=== PATIENT | female | born 1945 | race Caucasian/White ===

== ENCOUNTER 2022-05-06 08:23 | Day surgery (SDC) | payer OTHER, MEDICARE ==
[2022-04-28 08:46] VITALS: BMI 32.9
[2022-05-06] MEDS ORDERED: ePHEDrine SULFATE 50 MG/1 ML AMPULE ONE (09:58)
[2022-05-06] MEDS ORDERED: PHENYLEPHRINE HCL 10 MG/1 ML SINGLE DOSE VIAL ONE (10:06)
[2022-05-06 11:01] VITALS: BP 82/55; PULSE 71; RESP 20; TEMP 98
== END 2022-05-06 11:00 | disposition home or self-care (01) ==
LOC: FASU-ENDO 08:23
PROVIDERS: ATTEND Internal Medicine
PROC: 0DBK8ZX Excision of Ascending Colon, Via Natural or Artificial Opening Endoscopic, Diagnostic (ICD-10-PCS; 2022-05-06)
PROC: 0DBN8ZX Excision of Sigmoid Colon, Via Natural or Artificial Opening Endoscopic, Diagnostic (ICD-10-PCS; 2022-05-06)
PROC: 0DBM8ZX Excision of Descending Colon, Via Natural or Artificial Opening Endoscopic, Diagnostic (ICD-10-PCS; 2022-05-06)
PROC: 0DBL8ZX Excision of Transverse Colon, Via Natural or Artificial Opening Endoscopic, Diagnostic (ICD-10-PCS; principal; 2022-05-06 09:50)
DX: Z12.11 Encounter for screening for malignant neoplasm of colon (principal); D12.2 Benign neoplasm of ascending colon; D12.3 Benign neoplasm of transverse colon; K63.5 Polyp of colon; K57.30 Diverticulosis of large intestine without perforation or abscess without bleeding; K64.8 Other hemorrhoids; Z86.010 Personal history of colon polyps
CPT/HCPCS: 88305-TC

== ENCOUNTER 2023-04-22 08:43 | Emergency (ER) | payer OTHER, MEDICARE ==
[2023-04-22 09:47] VITALS: BP 98/60; PULSE 71; RESP 18; TEMP 97.1; BMI 33.9
[2023-04-22 11:29] LABS: INR 2.01 (0.83-1.09); PROTHROMBIN TIME (PATIENT) 23.2 SEC (9.7-13.0)
[2023-04-22 11:38] LABS: POTASSIUM 4.5 mmol/L (3.5-5.1)
[2023-04-22 11:39] LABS: BASO % 0.1 % (0-2.0); EOS % 0.1 % (0-4.5); HEMATOCRIT 35.2 % (32.4-45.2); HEMOGLOBIN 11.1 GM/dL (10.7-15.3); LYMPH % 4.2 % (8-40); MCH 27.8 pg (25.7-33.7); MCHC 31.5 g/dl (32.0-36.0); MEAN CELL VOLUME 88.2 fl (80-96); MEAN PLT VOLUME 8.6 fl (7.5-11.1); MONO % 6.5 % (3.8-10.2); NEUT % 89.1 % (42.8-82.8); PLATELET COUNT 257 10^3/uL (134-434); RBC 3.99 M/mm3 (3.60-5.2); RDW 19.1 % (11.6-15.6); WHITE BLOOD COUNT 10.5 K/mm3 (4.0-10.0)
[2023-04-22 11:41] LABS: ALBUMIN 2.8 g/dl (3.4-5.0); BLOOD UREA NITROGEN 25.4 mg/dL (7-18); CALCIUM 8.7 mg/dL (8.5-10.1); MAGNESIUM 2.5 mg/dL (1.8-2.4)
[2023-04-22 11:45] LABS: BILIRUBIN,TOTAL 0.8 mg/dL (0.2-1); TOT PROT 6.2 g/dl (6.4-8.2)
[2023-04-22 11:49] LABS: LACTIC ACID 3.2 mmol/L (0.4-2.0)
[2023-04-22] MEDS ORDERED: SODIUM CHLORIDE 0.9% 500 ML INFUS.BAG IV ONE (11:52)
[2023-04-22 14:55] LABS: URINE APPEARANCE CLOUDY; URINE BILIRUBIN NEGATIVE (NEGATIVE); URINE COLOR YELLOW; URINE GLUCOSE (UA) NEGATIVE (NEGATIVE); URINE KETONE NEGATIVE (NEGATIVE)
[2023-04-22 14:56] LABS: EPI CELLS 22.5 /uL (0-25.1); HYALINE CASTS 1.18 /uL (0-3.1); URINE BACTERIA 2585.7 /uL (0-1359); URINE LEUK ESTERASE 3+ (NEGATIVE); URINE NITRITE NEGATIVE (NEGATIVE); URINE PROTEIN 1+ (NEGATIVE); URINE RBC 115.7 /uL (0-23.9); URINE UROBILINOGEN 0.2 mg/dL (0.2-1.0); URINE WBC 1153.2 /uL (0-25.8)
[2023-04-22 15:34] LABS: LACTIC ACID 2.2 mmol/L (0.4-2.0)
== END 2023-04-22 17:48 | disposition home or self-care (01) ==
LOC: JER 08:43
DX: U07.1 COVID-19 (principal); N39.0 Urinary tract infection, site not specified; R10.32 Left lower quadrant pain; R10.31 Right lower quadrant pain; J02.9 Acute pharyngitis, unspecified; M79.604 Pain in right leg
CPT/HCPCS: 0241U-QW; 36415; 71045-TC-FY; 74177-TC; 80053; 80307; 81003; 83605; 83735; 84484; 85025; 85610; 85730; 87086; 93005; 93010; 99285-25; Q9967

== ENCOUNTER 2023-05-19 15:59 | Inpatient (IN) | payer OTHER, MEDICARE ==
[2023-05-19 17:50] LABS: VENOUS BASE EXCESS 3.2 mmol/L (-2-2); VENOUS O2 SATURATION 29.6 % (70-80); VENOUS PCO2 44.4 mmHg (38-52); VENOUS PH 7.42 (7.310-7.410)
[2023-05-19 17:57] LABS: BASO % 1.4 % (0-2.0); EOS % 2.9 % (0-4.5); HEMATOCRIT 37.3 % (32.4-45.2); HEMOGLOBIN 12.1 GM/dL (10.7-15.3); LYMPH % 21.6 % (8-40); MCHC 32.4 g/dl (32.0-36.0); MEAN CELL VOLUME 89.5 fl (80-96); MEAN PLT VOLUME 7.9 fl (7.5-11.1); MONO % 11.7 % (3.8-10.2); NEUT % 62.4 % (42.8-82.8); PLATELET COUNT 311 10^3/uL (134-434); RBC 4.17 M/mm3 (3.60-5.2); RDW 23.2 % (11.6-15.6); WHITE BLOOD COUNT 7.7 K/mm3 (4.0-10.0)
[2023-05-19 18:14] LABS: INR 1.58 (0.83-1.09); PROTHROMBIN TIME (PATIENT) 18.3 SEC (9.7-13.0)
[2023-05-19 18:16] LABS: ACTIVATED PTT 31.5 SECONDS (25.2-36.5)
[2023-05-19 18:22] LABS: CALCIUM 9.4 mg/dL (8.5-10.1)
[2023-05-19 18:23] LABS: ALBUMIN 3.4 g/dl (3.4-5.0); BLOOD UREA NITROGEN 12.6 mg/dL (7-18)
[2023-05-19 18:26] LABS: CREATININE 0.7 mg/dL (0.55-1.3)
[2023-05-19 18:28] LABS: TOT PROT 6.6 g/dl (6.4-8.2)
[2023-05-19 18:30] LABS: ANISOCYTOSIS 3+; MACROCYTOSIS 0; OVALOCYTE 1+
[2023-05-19 19:15] LABS: EPI CELLS 14 /uL (0-25.1); HYALINE CASTS 4 /uL (0-3.1); URINE APPEARANCE TURBID; URINE BACTERIA >9,000 /uL (0-1359); URINE BILIRUBIN 1+ (NEGATIVE); URINE COLOR DK YELLOW; URINE GLUCOSE (UA) NEGATIVE (NEGATIVE); URINE KETONE TRACE (NEGATIVE); URINE LEUK ESTERASE 3+ (NEGATIVE); URINE NITRITE POSITIVE (NEGATIVE); URINE PROTEIN 1+ (NEGATIVE); URINE WBC 21911 /uL (0-25.8)
[2023-05-19 19:31] LABS: URINE CRYSTALS MODERATE /hpf; URINE RBC 359 /uL (0-23.9); YEAST NONE SEEN (NEGATIVE)
[2023-05-19] MEDS ORDERED: ERTAPENEM SODIUM 1 GM VIAL ONE (20:35)
[2023-05-19] MEDS: ERTAPENEM SODIUM 1 GM in SODIUM CHLORIDE 50 ML IVPB ONE (20:45)
[2023-05-20] MEDS: INSULIN ASPART SLIDING SCALE (NOVOLOG) 1 VIAL SQ SCH (00:53)
[2023-05-20 06:38] VITALS: BMI 27.3
[2023-05-20 09:20] LABS: BASO % 1.5 % (0-2.0); EOS % 3.4 % (0-4.5); HEMATOCRIT 35.7 % (32.4-45.2); HEMOGLOBIN 11.3 GM/dL (10.7-15.3); LYMPH % 21.3 % (8-40); MCHC 31.7 g/dl (32.0-36.0); MEAN CELL VOLUME 91.5 fl (80-96); MEAN PLT VOLUME 7.8 fl (7.5-11.1); MONO % 10.4 % (3.8-10.2); NEUT % 63.4 % (42.8-82.8); PLATELET COUNT 275 10^3/uL (134-434); RBC 3.91 M/mm3 (3.60-5.2); RDW 22.9 % (11.6-15.6); WHITE BLOOD COUNT 6.5 K/mm3 (4.0-10.0)
[2023-05-20 09:53] LABS: POTASSIUM 4.2 mmol/L (3.5-5.1)
[2023-05-20] MEDS ORDERED: ENOXAPARIN NA (PORCINE) 40 MG/0.4 ML DISP.SYRIN SQ SCH (10:00)
[2023-05-20 10:01] LABS: ALBUMIN 3.1 g/dl (3.4-5.0); BLOOD UREA NITROGEN 12.3 mg/dL (7-18); CALCIUM 9.3 mg/dL (8.5-10.1)
[2023-05-20 10:02] LABS: BILIRUBIN,TOTAL 0.8 mg/dL (0.2-1); CREATININE 0.7 mg/dL (0.55-1.3)
[2023-05-20 10:03] LABS: PHOSPHOROUS 4.3 mg/dL (2.5-4.9); TOT PROT 6.2 g/dl (6.4-8.2)
[2023-05-20] MEDS: metoPROLOL SUCCINATE 25 MG TAB.SR.24H (FP) PO SCH (10:27)
[2023-05-20] MEDS: DIGOXIN 0.125 MG TABLET PO SCH (10:28)
[2023-05-20] MEDS: APIXABAN 5 MG TABLET PO SCH (10:28)
[2023-05-20] MEDS: CLOTRIMAZOLE 1% CREAM TP SCH (15:40)
[2023-05-20] MEDS: HALOPERIDOL LACTATE 5 MG/ML IM ONE (15:40)
[2023-05-20] MEDS: SACUBITRIL/VALSARTAN 24 MG-26 MG TABLET PO SCH (22:25)
[2023-05-20] MEDS: ROSUVASTATIN CA 20 MG TABLET PO SCH (22:25)
[2023-05-20] MEDS: ERTAPENEM SODIUM 1 GM in SODIUM CHLORIDE 50 ML IVPB SCH (22:25)
[2023-05-21 09:18] LABS: POTASSIUM 4.2 mmol/L (3.5-5.1)
[2023-05-21 09:23] LABS: ALBUMIN 2.8 g/dl (3.4-5.0); BLOOD UREA NITROGEN 11.7 mg/dL (7-18); CALCIUM 9.1 mg/dL (8.5-10.1)
[2023-05-21 09:26] LABS: CREATININE 0.8 mg/dL (0.55-1.3)
[2023-05-21 09:27] LABS: BILIRUBIN,TOTAL 0.6 mg/dL (0.2-1); TOT PROT 5.9 g/dl (6.4-8.2)
[2023-05-21 09:31] LABS: N-TERMINAL BNP 1508.9 pg/ml (5-450)
[2023-05-21] MEDS: HALOPERIDOL LACTATE 5 MG/ML IM PRN (20:48)
[2023-05-22 10:43] LABS: BASO % 1.3 % (0-2.0); HEMOGLOBIN 11.8 GM/dL (10.7-15.3); LYMPH % 15.5 % (8-40); MCH 29.2 pg (25.7-33.7); MCHC 31.9 g/dl (32.0-36.0); MEAN CELL VOLUME 91.4 fl (80-96); MEAN PLT VOLUME 7.8 fl (7.5-11.1); MONO % 7.7 % (3.8-10.2); NEUT % 73.5 % (42.8-82.8); PLATELET COUNT 258 10^3/uL (134-434); RBC 4.05 M/mm3 (3.60-5.2); RDW 22.4 % (11.6-15.6); WHITE BLOOD COUNT 7.3 K/mm3 (4.0-10.0)
[2023-05-22 11:00] LABS: POTASSIUM 4.4 mmol/L (3.5-5.1)
[2023-05-22 11:07] LABS: CALCIUM 9.3 mg/dL (8.5-10.1)
[2023-05-22 11:08] LABS: ALBUMIN 2.8 g/dl (3.4-5.0); BLOOD UREA NITROGEN 12.6 mg/dL (7-18)
[2023-05-22 11:11] LABS: CREATININE 0.9 mg/dL (0.55-1.3)
[2023-05-22 11:14] LABS: BILIRUBIN,TOTAL 0.6 mg/dL (0.2-1)
[2023-05-22] MEDS: SACUBITRIL/VALSARTAN 24 MG-26 MG TABLET PO SCH (21:39)
[2023-05-23 09:03] LABS: POTASSIUM 4.1 mmol/L (3.5-5.1)
[2023-05-23 09:11] LABS: CALCIUM 8.9 mg/dL (8.5-10.1)
[2023-05-23 09:12] LABS: ALBUMIN 2.7 g/dl (3.4-5.0)
[2023-05-23 09:14] LABS: CREATININE 0.8 mg/dL (0.55-1.3)
[2023-05-23 09:16] LABS: BILIRUBIN,TOTAL 0.7 mg/dL (0.2-1); TOT PROT 5.7 g/dl (6.4-8.2)
[2023-05-23] MEDS: metoPROLOL SUCCINATE 25 MG TAB.SR.24H (FP) PO SCH (10:14)
[2023-05-23] MEDS ORDERED: ACETAMINOPHEN 325 MG TABLET (FP) PO PRN (12:24)
[2023-05-23] MEDS: SPIRONOLACTONE 25 MG TABLET PO SCH (15:33)
[2023-05-24] MEDS: DOCUSATE SODIUM 100 MG CAPSULE (FP) PO SCH (09:38)
[2023-05-24] MEDS: PANTOPRAZOLE 40 MG TABLET PO SCH (09:38)
[2023-05-24 09:53] LABS: BASO % 0.9 % (0-2.0); EOS % 0.2 % (0-4.5); HEMOGLOBIN 12.7 GM/dL (10.7-15.3); LYMPH % 7.6 % (8-40); MCH 29.5 pg (25.7-33.7); MCHC 32.6 g/dl (32.0-36.0); MEAN CELL VOLUME 90.4 fl (80-96); MEAN PLT VOLUME 7.9 fl (7.5-11.1); MONO % 4.5 % (3.8-10.2); NEUT % 86.8 % (42.8-82.8); PLATELET COUNT 285 10^3/uL (134-434); RBC 4.31 M/mm3 (3.60-5.2); RDW 22.4 % (11.6-15.6); WHITE BLOOD COUNT 10.8 K/mm3 (4.0-10.0)
[2023-05-24 10:29] LABS: ANISOCYTOSIS 2+; MACROCYTOSIS 2+
[2023-05-24 10:52] LABS: ALBUMIN 2.9 g/dl (3.4-5.0)
[2023-05-24 10:54] LABS: BLOOD UREA NITROGEN 14.2 mg/dL (7-18); CREATININE 0.8 mg/dL (0.55-1.3)
[2023-05-24 10:56] LABS: TOT PROT 6.2 g/dl (6.4-8.2)
[2023-05-24 10:58] LABS: CALCIUM 9.4 mg/dL (8.5-10.1)
[2023-05-24] MEDS: VITAMINS A AND D TOPICAL OINTMENT 60 GM TUBE TP SCH (17:24)
[2023-05-24] MEDS: POLYETHYLENE GLYCOL (HEALTHYLAX) 3350 17 GM PACKET PO SCH (21:50)
[2023-05-25 07:42] VITALS: RESP 18
[2023-05-25 10:01] VITALS: BP 103/55; PULSE 68; TEMP 98
== END 2023-05-25 12:44 | DRG 689 ==
LOC: JER 15:59 → JERBED 23:18 → J8W 05-20 04:55
PROVIDERS: ADMIT Internal Medicine; ATTEND Nurse Practitioner Family
DX: N39.0 Urinary tract infection, site not specified (principal); G93.41 Metabolic encephalopathy; F03.918 Unspecified dementia, unspecified severity, with other behavioral disturbance; I50.20 Unspecified systolic (congestive) heart failure; K92.1 Melena; E78.5 Hyperlipidemia, unspecified; K21.9 Gastro-esophageal reflux disease without esophagitis; G47.30 Sleep apnea, unspecified; I11.0 Hypertensive heart disease with heart failure; E11.9 Type 2 diabetes mellitus without complications; J44.9 Chronic obstructive pulmonary disease, unspecified; E03.9 Hypothyroidism, unspecified; F32.A Depression, unspecified; Z79.899 Other long term (current) drug therapy; B96.29 Other Escherichia coli [E. coli] as the cause of diseases classified elsewhere; K64.9 Unspecified hemorrhoids; K59.00 Constipation, unspecified
CPT/HCPCS: 0241U-QW; 36415; 70450-TC; 71045-TC-FY; 80053; 80061; 80162; 81003; 82140; 82272; 82803; 82962; 83605; 83735; 83880; 84100; 84443; 84484; 85025; 85610; 85730; 86850; 86900; 86901; 87040; 87086; 87186; 87635; 93005; 93010; 93306-TC; 94660; 97161-GP; 99285-25